=== PATIENT | female | born 1930 | race Caucasian/White ===

== ENCOUNTER 2018-09-05 18:36 | Inpatient (IN) | payer OTHER ==
[~2018-09-05] VITALS: Ht 157.5 cm; Wt 77.1 kg
[~2018-09-05 18:36] MED LIST: ASA81 MG; ATROVENT 00.5 MG/2.5; AVELOX ABC PAC400 MG; CATAFLAM50 MG; COZAAR50 MG; Cozaar PO; EXELON1.5 MG; GLIPIZIDE2.5 MG/BOT; NORVASC 5MG TAB PO; NORVASC5 MG; OMEPRAZOLE MAGN20 MG; PRAVASTATIN SOD20 MG; SINGULAIR 10MG10 MG; SYMBICORT 16010.2 GM; SYNTHROID75 MCG; Synthroid PO; VASOFLEX TABLET1 TAB; XOPENEX0.63 MG/3 IH; [UNRECOGNIZED DRUG - OTHER]
[2018-09-12] MEDS ORDERED: XOPENEX0.63 MG/3 IH (09:46)
== END 2018-09-12 10:56 | disposition home or self-care (01) | DRG 191 ==
LOC: ER 18:36 → MEDI 20:54
PROVIDERS: ADMIT Internal Medicine
PROC: 4A033R1 Measurement of Arterial Saturation, Peripheral, Percutaneous Approach (ICD-10-PCS; principal; 2018-09-05)
PROC: 3E0F7GC Introduction of Other Therapeutic Substance into Respiratory Tract, Via Natural or Artificial Opening (ICD-10-PCS; 2018-09-05)
PROC: BW24ZZZ Computerized Tomography (CT Scan) of Chest and Abdomen (ICD-10-PCS; 2018-09-05)
DX: J44.1 Chronic obstructive pulmonary disease with (acute) exacerbation (principal); N17.8 Other acute kidney failure; G30.8 Other Alzheimer's disease; F02.80 Dementia in other diseases classified elsewhere, unspecified severity, without behavioral disturbance, psychotic disturbance, mood disturbance, and anxiety; J45.998 Other asthma; R09.02 Hypoxemia; T38.0X5A Adverse effect of glucocorticoids and synthetic analogues, initial encounter; E09.9 Drug or chemical induced diabetes mellitus without complications; E03.8 Other specified hypothyroidism; E78.49 Other hyperlipidemia; I10 Essential (primary) hypertension; K21.9 Gastro-esophageal reflux disease without esophagitis; Z88.0 Allergy status to penicillin; Z79.4 Long term (current) use of insulin; Z77.22 Contact with and (suspected) exposure to environmental tobacco smoke (acute) (chronic)

== ENCOUNTER 2018-09-14 15:14 | Inpatient (IN) | payer OTHER ==
[~2018-09-14] VITALS: Ht 152.4 cm; Wt 77.1 kg
[2018-09-21] MEDS ORDERED: CEFDINIR300 MG PO (12:04)
[2018-09-21] MEDS ORDERED: FLUCONAZOLE200 MG PO (12:06)
[2018-09-21] MEDS ORDERED: PREDNISONE10 MG PO (12:08)
[2018-09-21] MEDS ORDERED: XOPENEX0.63 MG/3 IH (12:12)
[2018-09-21] MEDS ORDERED: BUDESONIDE0.5 MG/2 M IH (12:13)
== END 2018-09-21 14:24 | disposition home or self-care (01) | DRG 191 ==
LOC: ER 15:14 → SEC-K 22:25 → MEDI 22:25
PROVIDERS: ADMIT Internal Medicine
PROC: 3E0F7GC Introduction of Other Therapeutic Substance into Respiratory Tract, Via Natural or Artificial Opening (ICD-10-PCS; principal; 2018-09-14)
PROC: BW24ZZZ Computerized Tomography (CT Scan) of Chest and Abdomen (ICD-10-PCS; 2018-09-14)
PROC: B246ZZZ Ultrasonography of Right and Left Heart (ICD-10-PCS; 2018-09-17)
DX: J44.1 Chronic obstructive pulmonary disease with (acute) exacerbation (principal); J45.21 Mild intermittent asthma with (acute) exacerbation; J45.998 Other asthma; J44.0 Chronic obstructive pulmonary disease with (acute) lower respiratory infection; J20.9 Acute bronchitis, unspecified; B96.29 Other Escherichia coli [E. coli] as the cause of diseases classified elsewhere; G30.8 Other Alzheimer's disease; F02.80 Dementia in other diseases classified elsewhere, unspecified severity, without behavioral disturbance, psychotic disturbance, mood disturbance, and anxiety; R09.02 Hypoxemia; I10 Essential (primary) hypertension; E11.9 Type 2 diabetes mellitus without complications; I73.89 Other specified peripheral vascular diseases; E03.8 Other specified hypothyroidism; Z99.81 Dependence on supplemental oxygen; Z88.0 Allergy status to penicillin; Z77.22 Contact with and (suspected) exposure to environmental tobacco smoke (acute) (chronic); Z79.4 Long term (current) use of insulin

== ENCOUNTER 2018-11-29 14:33 | Inpatient (IN) | payer OTHER ==
[~2018-11-29] VITALS: Ht 149.9 cm; Wt 68.0 kg
[~2018-11-29 14:33] MED LIST changes: +BUDESONIDE0.5 MG/2 M IH; +CEFDINIR300 MG PO; +FLUCONAZOLE200 MG PO; +PREDNISONE10 MG PO
--- NOTE | 2018-11-29 14:41 | NUR ---
SE RECIBE PTE ALERTA Y ORIENTADA X3,EN AMBULANCIA LOS PARAMEDICO REFIERE QUE LA PTE ESTA OXIGENANDO 86% , REFIERE LA ALEXANDER DEL CENTRO EN EL CUAL ESTA LA PTE ,URIOSTEGUI INTERNISTA CINTHIA BANKS.
[2018-11-29] MEDS ORDERED: LATANOPROST2.5 ML (14:46)
[2018-11-29] MEDS ORDERED: TOBREX5 ML (14:46)
--- NOTE | 2018-11-29 15:57 | NUR ---
SE RECIBE PTE ALERTA Y ORIENTADA X3 EN RADHA CON BARANDAS ELEVADAS.SE RECIBE PTE CONECTADO A MONITOR CARDIACO Y OXIMETRIA. SE RECIBE PTE CON CANULA NASAL A 3L. SE RECIBE PTE ACOMAPADA. SE CANALIZA AREA HANK DE EDEMA Y DE ENROJECIMIENTO. SE LE LISA MUESTRAS DE LAB.CHAO ORDEN MEDICA BAJO MEDIDAS ASEPTICAS. SE LE NOTIFICA A TERAPISTA DE TURNO SOBRE ORDEN DE TERAPIAS Y PEAK FLOW PENDING.
[2018-12-03] MEDS ORDERED: LEVAQUIN750 MG PO (14:28)
[2018-12-03] MEDS ORDERED: ZITHROMAX500 MG PO (14:29)
[2018-12-03] MEDS ORDERED: PREDNISONE5 M1 PO (14:29)
== END 2018-12-03 18:14 | disposition home or self-care (01) | DRG 190 ==
LOC: ER 14:33 → SEC-K 19:48 → MEDJ 19:48
PROVIDERS: ADMIT Internal Medicine
PROC: 3E0F7GC Introduction of Other Therapeutic Substance into Respiratory Tract, Via Natural or Artificial Opening (ICD-10-PCS; principal; 2018-11-29)
PROC: 4A033R1 Measurement of Arterial Saturation, Peripheral, Percutaneous Approach (ICD-10-PCS; 2018-11-29)
DX: J44.1 Chronic obstructive pulmonary disease with (acute) exacerbation (principal); B37.1 Pulmonary candidiasis; J45.901 Unspecified asthma with (acute) exacerbation; N39.0 Urinary tract infection, site not specified; I73.89 Other specified peripheral vascular diseases; R09.02 Hypoxemia; J22 Unspecified acute lower respiratory infection; I10 Essential (primary) hypertension; E03.8 Other specified hypothyroidism; Z16.12 Extended spectrum beta lactamase (ESBL) resistance; Z77.22 Contact with and (suspected) exposure to environmental tobacco smoke (acute) (chronic); E11.9 Type 2 diabetes mellitus without complications

== ENCOUNTER 2019-04-20 10:39 | Outpatient (CLI) | payer OTHER ==
[~2019-04-20 10:39] MED LIST changes: +LATANOPROST2.5 ML; +LEVAQUIN750 MG PO; +PREDNISONE5 M1 PO; +TOBREX5 ML; +ZITHROMAX500 MG PO
[2019-04-21] MEDS ORDERED: ESCITALOPRAM OXA5 MG (12:43)
[2019-04-21] MEDS ORDERED: XOPENEX0.63 MG/3 (12:51)
[2019-04-21] MEDS ORDERED: BUDEO.25 (12:52)
[2019-04-21] MEDS ORDERED: STOOL SOFTENER50 MG (12:56)
[2019-04-21] MEDS ORDERED: FOLIC ACID 1 MG (12:56)
[2019-04-21] MEDS ORDERED: RIVASTIGMINE1.5 MG (12:58)
[2019-04-21] MEDS ORDERED: SERTRALINE20 MG/1 ML (12:59)
== END 2019-04-20 10:40 | disposition home or self-care (01) ==
LOC: RAD 10:39
DX: I11.9 Hypertensive heart disease without heart failure (principal); J44.9 Chronic obstructive pulmonary disease, unspecified

== ENCOUNTER 2019-04-21 11:55 | Emergency (ER) | payer OTHER ==
[~2019-04-21] VITALS: Ht 152.4 cm; Wt 81.6 kg
[2019-04-21] MEDS ORDERED: ESCITALOPRAM OXA5 MG (12:43)
[2019-04-21] MEDS ORDERED: XOPENEX0.63 MG/3 (12:51)
[2019-04-21] MEDS ORDERED: BUDEO.25 (12:52)
[2019-04-21] MEDS ORDERED: FOLIC ACID 1 MG (12:56)
[2019-04-21] MEDS ORDERED: STOOL SOFTENER50 MG (12:56)
[2019-04-21] MEDS ORDERED: RIVASTIGMINE1.5 MG (12:58)
[2019-04-21] MEDS ORDERED: SERTRALINE20 MG/1 ML (12:59)
== END 2019-04-21 21:22 | disposition home or self-care (01) ==
LOC: ER 11:55
DX: J44.1 Chronic obstructive pulmonary disease with (acute) exacerbation (principal); K29.60 Other gastritis without bleeding; J45.998 Other asthma; R09.02 Hypoxemia; R06.02 Shortness of breath; Z77.22 Contact with and (suspected) exposure to environmental tobacco smoke (acute) (chronic)

== ENCOUNTER 2019-08-09 22:14 | Emergency (ER) | payer OTHER ==
[~2019-08-09] VITALS: Ht 152.4 cm; Wt 72.6 kg
[~2019-08-09 22:14] MED LIST changes: +BUDEO.25; +ESCITALOPRAM OXA5 MG; +FOLIC ACID 1 MG; +RIVASTIGMINE1.5 MG; +SERTRALINE20 MG/1 ML; +STOOL SOFTENER50 MG; +XOPENEX0.63 MG/3
== END 2019-08-10 01:57 | disposition home or self-care (01) ==
LOC: ER 22:14
DX: R04.0 Epistaxis (principal); Z03.818 Encounter for observation for suspected exposure to other biological agents ruled out; Z99.81 Dependence on supplemental oxygen

== ENCOUNTER 2019-08-12 10:45 | Emergency (ER) | payer OTHER ==
[~2019-08-12] VITALS: Ht 152.4 cm; Wt 81.6 kg
[2019-08-12] MEDS ORDERED: [UNRECOGNIZED DRUG - OTHER] (11:25)
[2019-08-12] MEDS ORDERED: PANTOPRAZOLE 40 MG (11:26)
[2019-08-12] MEDS ORDERED: SYNTHROID88 MCG (11:27)
[2019-08-12] MEDS ORDERED: MUPIROCIN1 G1 TOP (17:01)
[2019-08-12] MEDS ORDERED: MIRALAX17 GM PO (17:09)
[2019-08-12] MEDS ORDERED: DULCOLAX5 MG PO (17:09)
== END 2019-08-12 20:27 | disposition home or self-care (01) ==
LOC: ER 10:45
DX: R04.0 Epistaxis (principal)

== ENCOUNTER 2021-02-28 14:30 | Emergency (ER) | payer OTHER ==
[~2021-02-28] VITALS: Ht 149.9 cm; Wt 68.0 kg
[~2021-02-28 14:30] MED LIST changes: +DULCOLAX5 MG PO; +MIRALAX17 GM PO; +MUPIROCIN1 G1 TOP; +PANTOPRAZOLE 40 MG; +SYNTHROID88 MCG; +[UNRECOGNIZED DRUG - OTHER]
[2021-02-28] MEDS ORDERED: NORVASC5 MG PO (14:53)
[2021-02-28] MEDS ORDERED: XOPENEX0.63 MG/3 IH (14:53)
[2021-02-28] MEDS ORDERED: SINGULAIR10 MG PO (14:54)
[2021-02-28] MEDS ORDERED: PROBIOTIC1 EAC2 PO (14:54)
[2021-02-28] MEDS ORDERED: PEPCID AC20 MG PO (14:55)
[2021-02-28] MEDS ORDERED: BUDESONIDE0.5 GM MC (14:55)
[2021-02-28] MEDS ORDERED: PRAVASTATIN SOD20 MG PO (14:56)
[2021-02-28] MEDS ORDERED: PROTONIX40 M1 PO (14:56)
[2021-02-28] MEDS ORDERED: LATANOPROST1 GM (14:57)
[2021-02-28] MEDS ORDERED: BENZONATATE150 MG (14:57)
== END 2021-02-28 22:41 | disposition home or self-care (01) ==
LOC: ER 14:30
DX: E86.0 Dehydration (principal); E87.8 Other disorders of electrolyte and fluid balance, not elsewhere classified; R13.19 Other dysphagia; G30.8 Other Alzheimer's disease; F02.80 Dementia in other diseases classified elsewhere, unspecified severity, without behavioral disturbance, psychotic disturbance, mood disturbance, and anxiety; J44.1 Chronic obstructive pulmonary disease with (acute) exacerbation; J45.998 Other asthma; I10 Essential (primary) hypertension